=== PATIENT | female | born 1975 | race Caucasian/White ===

== ENCOUNTER → 2016-11-27 | Outpatient (CLI) | payer OTHER ==
--- NOTE | 2016-11-27 22:34 | REP ---
Clinical: Pain . Technique: AP, lateral, bilateral oblique views right first digit . Findings: The osseous structures and joint spaces are intact and normal. There is no evidence for acute fracture or dislocation. Surrounding soft tissues are unremarkable. No subcutaneous emphysema or radiodense foreign body. Impression: Normal examination. No acute fracture or dislocation. Signed by Walter Salguero MD 11/27/2016 10:26 P
== END ==
LOC: M WUC 10:46
PROVIDERS: ATTEND Physician Assistant
DX: M79.641 Pain in right hand (principal); X58.XXXA Exposure to other specified factors, initial encounter; Y92.89 Other specified places as the place of occurrence of the external cause; Y93.89 Activity, other specified; Y99.8 Other external cause status